=== PATIENT | female | born 1995 | race Hispanic/Latino ===

== ENCOUNTER → 2025-08-22 | Outpatient (CLI) | payer OTHER ==
[2025-08-22 21:38] VITALS: PULSE 74; RESP 8
[2025-08-22 22:24] VITALS: PULSE 56; RESP 12
[2025-08-22 23:07] VITALS: PULSE 74; RESP 14
[2025-08-22 23:38] VITALS: PULSE 55; RESP 14
[2025-08-23 00:30] VITALS: PULSE 71; RESP 12
[2025-08-23 00:58] VITALS: PULSE 58; RESP 12
[2025-08-23 01:32] VITALS: PULSE 50; RESP 14
[2025-08-23 01:59] VITALS: PULSE 89; RESP 10
[2025-08-23 02:30] VITALS: PULSE 61; RESP 14
[2025-08-23 02:34] VITALS: PULSE 61; RESP 14
--- NOTE | 2025-08-23 02:34 | NUR ---
PATIENT REQUEST TO END SLEEP STUDY TEST DUE TO ALLERGIC REACTION,HIVES,ITCH AND NOT BEING ABLE TO SLEEP. PATIENT WAS OFFERED EMERGENCY ROOM SERVICES IF NEEDED THROUGH OUT THE NIGHT DURING THE TEST IF THE ALLERGY BECAME MORE SEVERE AND PATIENT WAS AWARE AND UNDERSTOOD OF ER SERVICES IF ALLERGY BECAME SEVERE. PATIENT CHOSE TO CONTINUE TEST UNTIL THIS TIME AND STOPPED TEST AND STATED SHE WILL GO HOME AND TAKE MEDICATION THERE. PATIENT HAS BEEN TRYING TO SLEEP DURING THE NIGHT TO FINISH TEST AND DUE TO ALLERGIC REACTION HAS DECIDED TO RESCHEDULE IF NEEDED TO BUT WILL NOT CONTINUE TEST NOW. Addendum: 08/23/25 at 0259 by [facility] Amended: Links added.
== END | disposition home or self-care (01) ==
LOC: SLP 20:13
PROVIDERS: ATTEND Family Medicine
DX: G47.8 Other sleep disorders (principal)
CPT/HCPCS: 95810